=== PATIENT | female | born 1955 | race Caucasian/White ===

== ENCOUNTER 2018-04-28 12:01 | Emergency (ER) | payer OTHER ==
[~2018-04-28] VITALS: Ht 167.6 cm; Wt 62.1 kg
[~2018-04-28 12:01] MED LIST: Advil200 M1 PO
[2018-04-28] MEDS ORDERED: DULERA 100 MCG/13 GM INH (12:26)
[2018-04-28] MEDS ORDERED: ALBU90OI INH (12:26)
[2018-04-28] MEDS ORDERED: MONT10T PO (12:26)
[2018-04-28] MEDS ORDERED: Percocet 5-3251 EACH PO (12:51)
== END 2018-04-28 13:19 | disposition home or self-care (01) ==
LOC: ER 12:01
DX: S82.854A Nondisplaced trimalleolar fracture of right lower leg, initial encounter for closed fracture (principal); Z88.2 Allergy status to sulfonamides; Z91.048 Other nonmedicinal substance allergy status; Z88.6 Allergy status to analgesic agent; Z87.891 Personal history of nicotine dependence; W01.0XXA Fall on same level from slipping, tripping and stumbling without subsequent striking against object, initial encounter
CPT/HCPCS: 29505; 73610; 99283

== ENCOUNTER 2018-05-04 07:43 | Day surgery (SDC) | payer OTHER ==
[~2018-05-04] VITALS: Ht 167.6 cm; Wt 61.0 kg
[~2018-05-04 07:43] MED LIST changes: +ALBU90OI INH; +DULERA 100 MCG/13 GM INH; +MONT10T PO; +Percocet 5-3251 EACH PO
== END 2018-05-04 12:01 | disposition home or self-care (01) ==
LOC: ORSCSDS 07:43
DX: S82.851A Displaced trimalleolar fracture of right lower leg, initial encounter for closed fracture (principal); J44.9 Chronic obstructive pulmonary disease, unspecified; Z87.891 Personal history of nicotine dependence; Z79.899 Other long term (current) drug therapy
CPT/HCPCS: C1713; J0690; J1100; J2250; J2405; J3010

== ENCOUNTER → 2022-07-07 | Outpatient (CLI) | payer OTHER | END | disposition home or self-care (01) | LOC: LAB SHORT 09:40 → LAB 09:40 | DX: R39.15 Urgency of urination (principal) | CPT/HCPCS: 87086 ==

== ENCOUNTER → 2023-04-05 | Outpatient (CLI) | payer OTHER | LOC: PLD 08:58 → LAB SHORT 08:58 | DX: D48.5 Neoplasm of uncertain behavior of skin (principal) | CPT/HCPCS: 88304 ==

== ENCOUNTER → 2023-05-29 | Outpatient (CLI) | payer OTHER | END | disposition home or self-care (01) | LOC: PLD 13:18 → LAB SHORT 13:18 | DX: D48.5 Neoplasm of uncertain behavior of skin (principal) | CPT/HCPCS: 88304 ==